=== PATIENT | female | born 1995 | race Caucasian/White ===

== ENCOUNTER 2019-08-11 18:28 | Emergency (ER) | payer OTHER ==
[~2019-08-11] VITALS: Ht 175.3 cm; Wt 67.6 kg
[2019-08-11 20:50] LABS: HEMATOCRIT 37.2 % (37.0-47.0); HEMOGLOBIN 12.8 gm/dL (12.0-15.0); MCH 30.2 pg (26.0-34.0); MCHC 34.3 g/dL (28.0-37.0); MCV 88.1 fL (80.0-100.0); PLATELET COUNT 271 thou/uL (150-400); RBC 4.22 mil/uL (4.20-5.00); RDW 11.9 % (10.5-14.5); WBC 7.6 thou/uL (4.0-11.0)
[2019-08-11 20:59] LABS: ANION GAP 13 mmol/L (7-16); BUN 12 mg/dL (7-18); CALCIUM 9.5 mg/dL (8.5-10.1); CHLORIDE 103 mmol/L (98-107); CO2 24 mmol/L (21-32); CREATININE 0.9 mg/dL (0.6-1.0); GLUCOSE 93 mg/dL (74-106); POTASSIUM 3.1 mmol/L (3.5-5.1); SODIUM 140 mmol/L (136-145)
[2019-08-11 21:07] LABS: TROPONIN-I <0.06 ng/mL (<0.06)
[2019-08-11 21:16] LABS: ABSOLUTE NEUTROPHILS 2.3 thou/uL (1.4-8.2); PLATELET ESTIMATE NORMAL
[2019-08-11 22:30] VITALS: BP 100/77
--- NOTE | 2019-08-12 12:13 | EKG ---
[facility] [place] [address] ELECTROCARDIOGRAM REPORT Name: ROCAEL JULES Aj Room #: DEP [facility]#: [id number] Admission: 08/11/19 Attend Phys: Discharge: 08/11/19 Date of : 89 Report #: [id number] THIS REPORT FOR: cc: UNA - Bhumi family physician/PCP UNA - Bhumi family physician/PCP Zack Garg MD ~ THIS REPORT FOR: //name// [facility] ED Test Date: 2019-08-11 Test Time: 21:07:59 Pat Name: ROCAEL JULES Department: Room: Gender: F [employer]ist: [facility] : 1995 Requested By: Abdirashid Osuna Order Number: [id number] MD: Zack Garg Measurements Intervals [place] Rate: 65 P: 52 [place]: 168 QRS: 74 QRSD: 84 T: 34 QT: 424 QTc: 441 Interpretive Statements Sinus rhythm No previous ECG available for comparison Electronically Signed On 08-12-2019 12:12:19 CDT by Zack Garg [email or web address] <ELECTRONICALLY SIGNED> By: Zack Garg MD 08/12/19 1212 06 Zack Garg MD /JOON
== END 2019-08-11 22:30 | disposition home or self-care (01) ==
LOC: ER 18:28
PROVIDERS: Emergency Medicine
DX: R06.00 Dyspnea, unspecified (principal); F41.9 Anxiety disorder, unspecified

== ENCOUNTER → 2019-11-28 | Outpatient (CLI) | payer OTHER | LOC: LAB 13:49 | PROVIDERS: ATTEND Nurse Practitioner | DX: U07.1 COVID-19 (principal) ==